=== PATIENT | male | born 1940 | race Caucasian/White ===

== ENCOUNTER → 2017-11-01 | Outpatient (CLI) | payer MEDICARE | END | disposition home or self-care (01) | LOC: PCVCCLINIC 15:29 | DX: I10 Essential (primary) hypertension (principal); E78.00 Pure hypercholesterolemia, unspecified; E78.5 Hyperlipidemia, unspecified; K29.71 Gastritis, unspecified, with bleeding; Z79.899 Other long term (current) drug therapy | CPT/HCPCS: 36415; 80061; 93005; G0463 ==

== ENCOUNTER → 2018-04-14 | Outpatient (CLI) | payer MEDICARE ==
[~2018-04-14] MED LIST: ATORVASTATIN CA80 MG PO; BUPIVACAINE MPF 0.25% 10 ML VIAL. ONE; DILT180C64 PO; IOHEXOL 180 MG/ML 10 ML VIAL. ONE; LIDOCAINE 1% PF 2 ML VIAL. ONE; LISI30TA4 PO; OMEP20CA9 PO; TAMS0.4C2 PO; iron OTC; methylPREDNISolone ACETATE 80 MG/ML VIAL. ONE
--- NOTE | 2018-04-15 04:22 | PAIN ---
DATE OF SERVICE: 04/14/2018 INITIAL CONSULTATION FOR PAIN CLINIC CHIEF COMPLAINT: Right shoulder pain. HISTORY OF PRESENT ILLNESS: This is a 78-year-old male who presents with history of pain in the right shoulder for about 10 months or so. The patient reports just under a year, not a result of any specific injury or accident that he is aware of but has significant pain in the left shoulder itself with activity, any type of range of motion reaching up over his head, especially getting dressed is very difficult. He actually needs help, getting his arm into his right sleeve on anything is not a button down shirt. The patient reports it is difficult to abduct the arm, any weightbearing in the arm, carrying items, holding things and he has been dropping items with his right hand secondary to the pain. He is right handed. The patient reports the pain is sharp when he moves, shooting pain into the right bicep and into the lateral and posterior aspect of the shoulder itself but not into the forearm. The patient reports he did have some physical therapy earlier this summer, which did help but only very mildly but did not increase his range of motion significantly. He was unable to do most of the activities and exercises on his own because of the pain. The patient had some x-rays at the Orthopedics office, which are not available at time of this dictation in an outside facility and was told that he may need surgery and was given some sort of injection at that time and that was about 2 months ago by his report. The patient reports no symptoms on the left shoulder or other complaints. The patient reports a disability rate from 0-10, 10 being the worst, is a 10 with family and home responsibilities, 10 with self care and 10 with life support activities, hard to use his right hand to eat, getting dressed, etc. PAST MEDICAL HISTORY: Significant for gastroesophageal reflux, hypertension, dizziness and skin cancer. PAST SURGICAL HISTORY: Previous surgeries include 2 corneal transplants. CURRENT MEDICATIONS: Include lisinopril, atorvastatin, Cartia, omeprazole and tamsulosin. ALLERGIES: The patient is allergic to SHELLFISH but no medical allergies. FAMILY HISTORY: Significant for heart disease. SOCIAL HISTORY: The patient drinks 1-2 alcoholic drinks a day, does not smoke, does not use any illegal, illicit or recreational drugs. He is a and lives in [facility] and is currently retired. REVIEW OF SYSTEMS: The patient's review of systems is positive for those items mentioned in the history of present illness. All systems reviewed and otherwise negative. It is complete, full and well documented on the patient's chart. PHYSICAL EXAMINATION: VITAL SIGNS: His blood pressure is 148/81, pulse is 67, respirations 18 and temperature 98.1 degrees Fahrenheit. Height is 5 feet 5 inches and weight is 167 pounds. GENERAL: The patient is awake, alert, oriented, appropriate and very pleasant demeanor. HEENT: Head shows normocephalic and atraumatic. Extraocular movements are intact and symmetrical. Oral cavity: Mucous membranes are moist and pink. Dentition is intact. NECK: Shows anterior throat supple without palpable lymphadenopathy noted. Swallow reflex is symmetrical. CHEST: Shows normal on inspection. Breath sounds clear to auscultation bilaterally. HEART: Shows S1 and S2 clear. No murmurs auscultated. ABDOMEN: Soft, nontender and nondistended. No palpable organomegaly is noted. No rebound or guarding demonstrated. BACK: Shows spine grossly in the midline, normal-appearing cervical lordotic curvature, slight increase in thoracic kyphotic curvature and some mild decreased lumbar lordotic curvature. Lumbar paraspinous muscle shows symmetrical on inspection, on palpation shows some very mild tenderness but only diffusely bilaterally. The patient's neck shows full rotational motion of the cervical spine without significant difficulty, minor guarding with extension but not with forward flexion, right and left lateral rotation. EXTREMITIES: The patient's upper extremities show deep tendon reflexes at 1+ in the biceps and triceps tendons. Motor exam is approximately 4 on a scale 5 with postpartum nurse strength and equal bilaterally. Bicep and tricep flexion is 3-4 on a scale of 5 on the right and 5/5 on the left. The patient has significant pain with biceps flexion and resistance. This is less painful with triceps flexion and resistance on the right side. Left side is intact with 5/5 strength without difficulty. With palpation, the patient's shoulder shows significant tenderness over the anterior aspect of the deltoid as well as in the posterior deltoid mildly, lateral deltoid is nontender, no specific tenderness over the acromioclavicular joint superiorly with range of motion; however, there is audible popping and clicking of the joint with external rotation as well as forward rotation of the glenohumeral joint with significant pain involved with each of these popping and clicking articulations. Peripheral pulses are 2+ radial distribution. No peripheral edema is noted in the upper extremities. No discoloration and no rashes. The patient's skin shows warm and dry, good turgor. No edema or sores. IMPRESSION: 1. This is a 78-year-old male with approximately 10-month history of pain in right shoulder, worse with activity, use, range of motion. 2. Hypertension. 3. Gastroesophageal reflux. PLAN: Options were discussed with the patient and the patient's daughter who accompanied him at his visit today including conservative medical management, continued physical therapy, interventional techniques and he would like to pursue interventional techniques. We discussed a right intra-articular shoulder joint injection using C-arm fluoroscopic guidance. The patient would like to proceed with this. Risks were discussed including, but not limited to bleeding, infection, possibility of intravascular injection sequelae, spread of local anesthetic and numbness, side effects of steroid medication, exposure to fluoroscopy and poor results regarding pain control. The patient understands and wished to proceed. The patient will return to the clinic in approximately 2 weeks for followup, was counseled as to return appointment, activity level and side effects to be aware of. Also, putting a referral for Orthopedic evaluation for a second opinion and the evaluation of the patient's right shoulder joint and shoulder pain in the meantime. DIAGNOSIS: Right shoulder joint pain with primary osteoarthritis, right shoulder joint. PROCEDURE: Right shoulder joint injection using a C-arm fluoroscopic guidance under sterile prep and drape using local anesthetic. MEDICATION INJECTED: A total of 80 mg Depo-Medrol plus total of 3 mL of 0.25% bupivacaine plus 2 mL of Isovue for contrast. CONDITION AT DISCHARGE: Stable. The patient tolerated the procedure well and had no complications. NOEL PRASAD MD DR: LYNDON/devonte JOB#: [id number] / [id number]
== END | disposition home or self-care (01) ==
LOC: PNCL 13:14
PROVIDERS: ATTEND Anesthesiology
DX: M19.011 Primary osteoarthritis, right shoulder (principal); I10 Essential (primary) hypertension; K21.9 Gastro-esophageal reflux disease without esophagitis; Z85.828 Personal history of other malignant neoplasm of skin; Z98.890 Other specified postprocedural states; Z79.899 Other long term (current) drug therapy; Z82.49 Family history of ischemic heart disease and other diseases of the circulatory system; Z72.89 Other problems related to lifestyle; Z91.013 Allergy to seafood
CPT/HCPCS: 20610; 77002; J1040; J3490; Q9965